=== PATIENT | female | born 1945 | race Caucasian/White ===

== ENCOUNTER 2018-02-24 12:18 | Emergency (ER) | payer OTHER, MEDICAID ==
[~2018-02-24] VITALS: Ht 162.6 cm; Wt 108.0 kg
[~2018-02-24 12:18] MED LIST: AMOXICILLIN 50500 MG PO; ASPIRIN EC81 M1 PO; AUGMENTIN 875875 MG PO; CENTRUM SILVER1 EAC4 PO; CEPHALEXIN 500500 M3 PO; CHILDREN'S CLARI5 MG PO; CLEOCIN HCL150 MG PO; CLEOCIN HCL300 MG PO; FISH OIL 1,001000 M2 PO; HYDROCODONE-AP1 EAC6 PO; IBUPROFEN 400400 M1 PO; IRON236 MG PO; KEFLEX500 MG PO; LASIX 20 MG TAB20 MG PO; LEXAPRO 10 MG T10 M1 PO; MAGOX 400400 MG PO; METFORMIN HCL500 MG PO; NIASPAN750 MG PO; OXYCODONE-ASPI1 EAC1 PO; PERCOCET 5-3251 EACH PO; POTASSIUM20; SYNTHROID75 MCG PO; TESSALON PERLE100 MG PO; TRICOR145 MG PO; TUMS PO; VITAMIN B-12500 MCG; VITAMIN D35000 UNI1 PO; VITAMIN D400 UNI1 PO; XANAX 0.5 MG0.5 M1 PO; ZOCOR40 MG PO
[2018-02-24] MEDS ORDERED: AUGMENTIN 875-1 EACH PO (12:38)
[2018-02-24 12:45] VITALS: BP 111/72
== END 2018-02-24 12:50 | disposition home or self-care (01) ==
LOC: M.ERS 12:18
DX: S51.832A Puncture wound without foreign body of left forearm, initial encounter (principal); S50.812A Abrasion of left forearm, initial encounter; J45.909 Unspecified asthma, uncomplicated; I50.9 Heart failure, unspecified; Z88.1 Allergy status to other antibiotic agents; Z91.012 Allergy to eggs; Z88.2 Allergy status to sulfonamides; Z88.8 Allergy status to other drugs, medicaments and biological substances; Z91.018 Allergy to other foods; Z86.2 Personal history of diseases of the blood and blood-forming organs and certain disorders involving the immune mechanism; Z90.49 Acquired absence of other specified parts of digestive tract; Z86.14 Personal history of Methicillin resistant Staphylococcus aureus infection; W55.01XA Bitten by cat, initial encounter; Y93.89 Activity, other specified; Y92.89 Other specified places as the place of occurrence of the external cause; Y99.8 Other external cause status

== ENCOUNTER 2018-09-08 21:27 | Emergency (ER) | payer OTHER, MEDICAID ==
[~2018-09-08] VITALS: Ht 162.6 cm; Wt 108.9 kg
[~2018-09-08 21:27] MED LIST changes: +AUGMENTIN 875-1 EACH PO
[2018-09-08] MEDS ORDERED: TRAMADOL 50 MG50 MG PO (23:31)
[2018-09-08 23:37] VITALS: BP 161/69
--- NOTE | 2018-09-09 12:32 | EKG ---
[place] [address] ELECTROCARDIOGRAM REPORT Name: NOLA HOUSTON Room: [facility]#: [id number] Admission: 09/08/18 Attend Phys: Discharge: 09/08/18 Date of : 41 Report #: [id number] THIS REPORT FOR: //name// [facility] ED Test Date: 2018-09-08 Test Time: 21:56:55 Pat Name: NOLA HOUSTON Department: Room: Gender: F Proof Technician: LUZ MARINA : 1945 Requested By: Luís Malone Order Number: [id number] MD: Donta Monge Measurements Intervals [place] Rate: 76 P: 19 NC: 143 QRS: 133 QRSD: 158 T: 31 QT: 430 QTc: 484 Interpretive Statements Sinus rhythm RBBB and LPFB Compared to ECG 11/30/2016 10:30:22 No significant changes Electronically Signed On 09-09-2018 12:32:03 CDT by Donta Monge [email or web address] <ELECTRONICALLY SIGNED> By: Donta Monge MD, [facility] 09/09/18 1232 [id number] 55 Donta Monge MD, FAC /EPI
== END 2018-09-08 23:37 | disposition home or self-care (01) ==
LOC: M.ERS 21:27
DX: S30.0XXA Contusion of lower back and pelvis, initial encounter (principal); M54.2 Cervicalgia; R51 Headache; J45.909 Unspecified asthma, uncomplicated; I50.9 Heart failure, unspecified; Z88.1 Allergy status to other antibiotic agents; Z88.4 Allergy status to anesthetic agent; Z91.012 Allergy to eggs; Z88.8 Allergy status to other drugs, medicaments and biological substances; Z88.2 Allergy status to sulfonamides; Z86.2 Personal history of diseases of the blood and blood-forming organs and certain disorders involving the immune mechanism; Z90.49 Acquired absence of other specified parts of digestive tract; W18.39XA Other fall on same level, initial encounter; Y92.89 Other specified places as the place of occurrence of the external cause; Y93.89 Activity, other specified; Y99.8 Other external cause status

== ENCOUNTER 2018-11-24 12:11 | Emergency (ER) | payer OTHER, MEDICAID ==
[~2018-11-24] VITALS: Ht 162.6 cm; Wt 106.6 kg
[~2018-11-24 12:11] MED LIST changes: -CHILDREN'S CLARI5 MG PO; +CLARITIN10 M2 PO; -IRON236 MG PO; +IRON325 PO; +LIPITOR40 MG PO; +MAGNESIUM250 M1 PO; -MAGOX 400400 MG PO; -POTASSIUM20; +POTASSIUM20 PO; +TRAMADOL 50 MG50 MG PO; +VITAMIN D2000 UNIT PO; -VITAMIN D35000 UNI1 PO; -ZOCOR40 MG PO
[2018-11-24 12:18] VITALS: BP 184/63
[2018-11-24] MEDS ORDERED: TRAZODONE HCL50 MG PO (12:31)
[2018-11-24] MEDS ORDERED: PROBIOTIC1 EAC1 PO (12:32)
[2018-11-24] MEDS ORDERED: VITAMIN B-12500 MCG PO (12:32)
[2018-11-24] MEDS ORDERED: PREORBOTIC CAP1 EACH PO (12:33)
[2018-11-24] MEDS ORDERED: PROAIR HFA8.5 GM PO (12:34)
[2018-11-24] MEDS ORDERED: DOXYCYCLINE 10100 MG PO (12:42)
== END 2018-11-24 12:45 | disposition home or self-care (01) ==
LOC: M.ERS 12:11
DX: T63.331A Toxic effect of venom of brown recluse spider, accidental (unintentional), initial encounter (principal); I50.9 Heart failure, unspecified; Z88.1 Allergy status to other antibiotic agents; Z88.4 Allergy status to anesthetic agent; Z91.012 Allergy to eggs; Z88.8 Allergy status to other drugs, medicaments and biological substances; Z88.2 Allergy status to sulfonamides; Z91.018 Allergy to other foods; Y92.89 Other specified places as the place of occurrence of the external cause; Z86.2 Personal history of diseases of the blood and blood-forming organs and certain disorders involving the immune mechanism

== ENCOUNTER → 2019-03-01 | Outpatient (CLI) | payer OTHER, MEDICAID ==
[~2019-03-01] MED LIST changes: +DOXYCYCLINE 10100 MG PO; +PREORBOTIC CAP1 EACH PO; +PROAIR HFA8.5 GM PO; +PROBIOTIC1 EAC1 PO; +TRAZODONE HCL50 MG PO; +VITAMIN B-12500 MCG PO
--- NOTE | 2019-03-02 11:32 | SLEEP ---
[address] [address] SLEEP STUDY REPORT Name: NOLA HOUSTON Room: [facility]#: [id number] Admission: 03/01/19 Attend Phys: Valentin Yañez MD Discharge: Date of : 41 Report #: [id number] THIS REPORT FOR: //name// CC: Valentin Yañez MD This study has been reviewed in its entirety by a board certified sleep specialist DATE OF SERVICE: 03/01/2019 ATTENDING PHYSICIAN: Valentin Yañez MD The patient is a 73-year-old who weighs 239 pounds with a BMI of 41. The patient's [place] score was 8. The patient underwent split night study performed at [facility]. During the night study, the patient spent 451 minutes in bed and slept for 243 minutes with a sleep efficiency of 54%. Sleep latency was prolonged at 109 minutes with a REM latency of 242 minutes. Sleep architecture showed increased stage 1 and stage 2 sleep, normal slow wave and reduced REM sleep, which was 12% of total sleep time. During the initial diagnostic portion of the study, the patient slept for 15 minutes after spending 207 minutes in bed. During that time, there were no apneas. There were 15 hypopneas. The patient's apnea hypopnea index was 18 per hour. REM sleep was not seen during the diagnostic portion. Supine AHI was 12.5 per hour. EKG monitoring revealed an average heart rate of 85 beats per minute. No sustained arrhythmias observed. PLMS were seen at an index of 48 per hour and 24 per hour caused EEG arousals. PLM index did improve to 21 per hour along with an arousal index of 4 per hour while the patient slept on CPAP. Nocturnal oximetry study during the diagnostic portion showed an average oxygen saturation of 90% with a lowest of 80%. A 48 minutes were spent in oxygen saturation less than 89%. The patient met the criteria for CPAP-BiPAP initiation. For the patient's comfort, the patient was started on BiPAP at 8/4 and titrated up to 12/7. At the final pressure, the patient slept for 38 minutes. The patient did not have supine or REM sleep. The patient's AHI was reduced to 0 per hour and oxygen saturation remained above 93%. [place] [address] SLEEP STUDY REPORT Name: ROSEMARIENOLA Room: [facility]#: [id number] Admission: 03/01/19 Attend Phys: Valentin Yañez MD Discharge: Date of : 41 Report #: [id number] IMPRESSION: 1. Moderate sleep apnea-hypopnea syndrome at an AHI of 18 per hour. 2. Reduced sleep efficiency of 54%, resulting from sleep onset and sleep maintenance insomnia. 3. Moderate periodic limb movements which did improve from an index of 48 per hour to 21 per hour while the patient slept on CPAP. Arousal index on CPAP was 4 per hour. RECOMMENDATIONS: 1. BiPAP at 12/7, should be used on a nightly basis. 2. Follow up in 4-6 weeks to assess compliance with BiPAP and to document clinical improvement. I would recommend review of the download data as well since no supine or REM sleep was seen at the final BiPAP pressure. 3. Weight loss is advised. 4. Avoid [employer] depressants. 5. Cautioned regarding driving until symptoms of sleep apnea resolve with the use of BiPAP. 6. The patient should also be further evaluated for symptoms of restless legs during the day. 7. If patient's insomnia is chronic, then it should be further evaluated and treated according to the etiology. <ELECTRONICALLY SIGNED> By: Rory Dangelo MD 03/02/19 [id number] Dangelo MD /nt
== END ==
LOC: M.SLEEPLAB 20:00
DX: G47.33 Obstructive sleep apnea (adult) (pediatric) (principal); G47.34 Idiopathic sleep related nonobstructive alveolar hypoventilation

== ENCOUNTER 2019-06-07 15:18 | Emergency (ER) | payer OTHER, MEDICAID ==
[~2019-06-07] VITALS: Ht 162.6 cm; Wt 109.3 kg
[2019-06-07] MEDS ORDERED: MUPIROCIN1 GM TOP (15:39)
[2019-06-07] MEDS ORDERED: DOXYCYCLINE MO100 MG PO (15:39)
[2019-06-07 15:54] VITALS: BP 140/80
== END 2019-06-07 15:57 | disposition home or self-care (01) ==
LOC: M.ERS 15:18
DX: L03.113 Cellulitis of right upper limb (principal); I50.9 Heart failure, unspecified; J45.909 Unspecified asthma, uncomplicated; Z86.14 Personal history of Methicillin resistant Staphylococcus aureus infection; Z90.49 Acquired absence of other specified parts of digestive tract; Z88.1 Allergy status to other antibiotic agents; Z88.8 Allergy status to other drugs, medicaments and biological substances; Z88.2 Allergy status to sulfonamides; Z91.012 Allergy to eggs

== ENCOUNTER 2019-06-25 16:29 | Emergency (ER) | payer OTHER, MEDICAID ==
[~2019-06-25] VITALS: Ht 162.6 cm; Wt 63.0 kg
[~2019-06-25 16:29] MED LIST changes: +DOXYCYCLINE MO100 MG PO; +MUPIROCIN1 GM TOP
[2019-06-25 16:40] VITALS: BP 171/93
[2019-06-25] MEDS ORDERED: HYDROCODONE-IB1 EACH PO (21:28)
== END 2019-06-25 19:20 | disposition home or self-care (01) ==
LOC: M.ERS 16:29
DX: M79.651 Pain in right thigh (principal); I50.9 Heart failure, unspecified; J45.909 Unspecified asthma, uncomplicated; Z86.718 Personal history of other venous thrombosis and embolism; Z86.14 Personal history of Methicillin resistant Staphylococcus aureus infection; Z90.49 Acquired absence of other specified parts of digestive tract; Z90.89 Acquired absence of other organs; Z86.2 Personal history of diseases of the blood and blood-forming organs and certain disorders involving the immune mechanism; Z88.2 Allergy status to sulfonamides; Z88.1 Allergy status to other antibiotic agents; Z88.8 Allergy status to other drugs, medicaments and biological substances